=== PATIENT | female | born 1960 | race Caucasian/White ===

== ENCOUNTER 2018-06-12 12:14 | Inpatient (IN) | payer OTHER ==
[2018-06-12 09:30] VITALS: BMI 25.7
[2018-06-12] MEDS ORDERED: MIDAZOLAM HCL 2 MG/2 ML SINGLE DOSE VIAL ONE (15:48)
[2018-06-12] MEDS ORDERED: fentaNYL CITRATE 250 MCG/5 ML VIAL ONE (15:48)
[2018-06-12] MEDS ORDERED: PROPOFOL 20 ML ONE (15:48)
[2018-06-12] MEDS ORDERED: HYDROmorphone HCl 2 MG/ML VIAL ONE (15:48)
[2018-06-12] MEDS ORDERED: ROCURONIUM BROMIDE 50 MG/5 ML VIAL ONE ×2 (15:48)
[2018-06-12] MEDS ORDERED: SUCCINYLCHOLINE CHLORIDE 200 MG/10 ML VIAL ONE (15:49)
[2018-06-12] MEDS ORDERED: ceFAZolin SODIUM 1 GM VIAL ONE (15:53)
[2018-06-12] MEDS ORDERED: SODIUM CHLORIDE 0.9% P/F 10 ML VIAL IJ ONE (15:53)
[2018-06-12] MEDS ORDERED: ceFAZolin SODIUM 1 GM VIAL IVPB ONE (16:10)
[2018-06-12] MEDS ORDERED: NEOSTIGMINE METHYLSULFATE 0.5 MG/ML - 10 ML MDV ONE (17:44)
[2018-06-12] MEDS ORDERED: METOCLOPRAMIDE HCL INJECTION 10 MG/2 ML VIAL IVPUSH PRN (18:50)
[2018-06-12] MEDS ORDERED: morphine CARPU-JECT 2 MG/1 ML DISP.SYRIN IVPUSH PRN (18:50)
[2018-06-12] MEDS ORDERED: diphenhydrAMINE HCL 25 MG CAPSULE (FP) PO PRN (18:50)
[2018-06-12] MEDS ORDERED: PROCHLORPERAZINE INJECTION 10 MG/2 ML VIAL IVPB PRN (18:50)
[2018-06-12] MEDS ORDERED: ONDANSETRON 4 MG/2 ML VIAL IVPB PRN (18:50)
[2018-06-12] MEDS ORDERED: ZOLPIDEM TARTRATE 5 MG TABLET PO PRN (18:52)
[2018-06-12] MEDS ORDERED: oxyCODONE HCL 5 MG TABLET PO PRN (18:56)
[2018-06-12] MEDS ORDERED: PATIENT'S OWN MEDICATION (NON-FORMULARY) (Sitagliptin Phos/Metformin Hcl [Janumet 50-1,000 PO SCH (19:00)
[2018-06-12] MEDS ORDERED: KETOROLAC TROMETHAMINE 15 MG/ML VIAL IVPUSH SCH (19:00)
--- NOTE | 2018-06-12 19:02 | OP ---
Operative Note - Note: Operative Date: 06/12/18 Pre-Operative Diagnosis: Ovarian cyst, Uterine mass Operation: Total abdominal hysterectomy and omentectomy Post-Operative Diagnosis: Same as Pre-op Surgeon: Yina Casillas [employer] Specialist: Toi Gallegos Anesthesia: General Estimated Blood Loss (mls): 300 Fluid Volume Replaced (mls): 2,000 Operative Report Dictated: Yes
[2018-06-12] MEDS ORDERED: HYDROmorphone *PCA* 10MG/50ML DISP.SYRIN PCA ONE ×2 (19:04→19:15)
--- NOTE | 2018-06-12 19:04 | SURG ---
Surgery Scene Painter Note Scene Painter: Toi Gallegos PA-C Date of Service: 06/12/18 Diagnosis: Ovarian cyst and Uterine mass Procedure: Total abdominal hysterectomy and omentectomy I was present for the entirety of the operative procedure. For further detail, please refer to operative report. Visit type - Case Type Case Type: Scheduled - Emergency Emergency Visit: No - New patient This patient is new to me today: Yes Date on this admission: 06/12/18
[2018-06-12] MEDS ORDERED: ONDANSETRON 4 MG/2 ML VIAL IVPUSH PRN (19:06)
[2018-06-12] MEDS ORDERED: DEXAMETHASONE SOD PHOSPHATE 4 MG/1 ML VIAL IVPUSH ONE (19:06)
[2018-06-12] MEDS ORDERED: LACTATED RINGERS SOLUTION 1,000 ML IV SCH (19:15)
[2018-06-12] MEDS ORDERED: HYDROmorphone *PCA* 10MG/50ML DISP.SYRIN PCA SCH (19:15)
--- NOTE | 2018-06-12 20:47 | OP ---
DATE OF OPERATION: 06/12/2018 PREOPERATIVE DIAGNOSIS: Abdominopelvic mass. POSTOPERATIVE DIAGNOSIS: Left ovarian mucinous tumor. SURGEON: Yina Casillas MD ROVING WEIGHT GAUGER: PEDRO PABLO Acosta ANESTHESIA: General endotracheal. ESTIMATED BLOOD LOSS: 150 mL. COMPLICATIONS: None. INDICATIONS: This is a 57-year-old who reports increased abdominal girth and lower abdominal pain and bloating for approximately 1 month. She had a CT scan that showed a large septated abdominopelvic mass. CA-125 was normal. The patient was counseled regarding surgical management. Risks, benefits, indications and alternatives were discussed with the patient. All questions were answered. Informed consent was signed. FINDINGS: Large, smooth-walled, multiloculated, approximately 35-cm mass arising from the left ovary. Left tube appeared abnormal as it was stretched across the mass. Right tube and ovary appeared normal. Uterus approximately 6-8 weeks' size. The appendix was completely normal appearing. Omentum appeared normal. There was no intraabdominal evidence of disease. There was no ascites. There were some attachments to the small bowel which were filmy, pink, almost steven-like attachments on the small bowel. The diaphragm was smooth and liver edge was smooth. PROCEDURE: The patient was taken to the operating room, placed in the dorsal supine position. General endotracheal anesthesia was obtained without difficulty. She was prepped and draped in normal sterile fashion. Lopez catheter was placed in the bladder. A vertical midline skin incision was made inferior to the umbilicus and carried down to the underlying fascia. The fascia was opened in the midline. Peritoneum was identified and entered sharply with Metzenbaum scissors. This incision was extended inferiorly and superiorly. It was evident that it was not able to be removed without making a much large incision. This incision was carried superior to the umbilicus and we palpated all around the mass. There were no adhesions posteriorly and a 2-0 silk stitch was placed in a pursestring fashion and using the suction the mass was decompressed, while controlling the drainage. It was able to be decompressed and exteriorized. The left retroperitoneum appeared to contain a thick mucoid material. The left retroperitoneum was opened. The left ureter was identified and dissected away from the infundibulopelvic ligament. The infundibulopelvic ligament was doubly clamped, transected and ligated with a free tie of 0-Vicryl and suture ligated with 0-Vicryl. The round ligament was suture ligated and divided. The right retroperitoneum was opened. The right ureter was dissected away from the infundibulopelvic ligament. The infundibulopelvic ligament was doubly clamped, transected and ligated with 3 ties of 0-Vicryl, suture ligated with 0-Vicryl. The round ligament was suture ligated and divided. The bladder flap was opened and the bladder was dissected off the anterior cervix and upper vagina. The uterine arteries were skeletonized. They were clamped, cauterized and transected using the LigaSure device. The cardinal ligaments were serially clamped, cauterized and transected using the LigaSure device. The uterosacral ligaments were clamped, cauterized and transected. Again bladder was dissected off the anterior cervix and upper vagina. Two Zeppelin clamps were placed distal to the cervix and the cervix was amputated from the vagina. Uterus, cervix, ovaries and tubes were handed off the field for frozen section. They returned mucinous tumor with no evidence of invasion visualized. They deferred to permanent. The vaginal cuff was closed in Jordyn stitch using 0-Vicryl. The remainder of the vaginal cuff was closed in a running locked fashion using 0-Vicryl. The pelvis was irrigated thoroughly with sterile water and noted to be hemostatic. As we had been waiting for the frozen section, an omentectomy was performed using the LigaSure device inferior to the transverse colon. Excellent hemostasis was seen. The pelvis was thoroughly irrigated with sterile water again and noted to be hemostatic. Surgicel was placed on the vaginal cuff for added assurance. Please note that there were extensive omental adhesions to the anterior abdominal wall from prior section. These omental adhesions had been freed with the LigaSure. All instruments were removed from the patient's abdomen. The fascia was closed in a running locked fashion using 0-PDS. Subcutaneous fat was irrigated with saline. The skin was closed with carlos. The patient was extubated and transferred in stable condition to the PACU. Sponge, needle and instrument counts were correct x2. Edwige [id number]
[2018-06-12] MEDS: ACETAMINOPHEN 325 MG TABLET (FP) PO SCH (23:30)
[2018-06-12] MEDS: ATORVASTATIN CA 40 MG TABLET (FP) PO SCH (23:31)
[2018-06-12] MEDS: GABAPENTIN 300 MG CAPSULE (FP) PO SCH (23:32)
[2018-06-12] MEDS: KETOROLAC TROMETHAMINE 30 MG/1 ML VIAL IVPUSH SCH (23:34)
[2018-06-13] MEDS: ACETAMINOPHEN 325 MG TABLET (FP) PO SCH ×3 (03:45→21:10)
[2018-06-13] MEDS: KETOROLAC TROMETHAMINE 30 MG/1 ML VIAL IVPUSH SCH ×3 (04:00→19:42)
[2018-06-13] MEDS: GABAPENTIN 300 MG CAPSULE (FP) PO SCH ×2 (06:39→21:10)
[2018-06-13] MEDS ORDERED: INSULIN (LEVEMIR) 100 UNITS/ML UNITS SQ SCH (07:00)
[2018-06-13 07:37] LABS: HEMATOCRIT 31.6 % (32.4-45.2); HEMOGLOBIN 10.8 GM/dL (10.7-15.3); MCH 28.3 pg (25.7-33.7); MCHC 34.1 g/dl (32.0-36.0); MEAN CELL VOLUME 82.9 fl (80-96); MEAN PLT VOLUME 7.8 fl (7.5-11.1); PLATELET COUNT 331 K/MM3 (134-434); RBC 3.81 M/mm3 (3.60-5.2); RDW 15.3 % (11.6-15.6); WHITE BLOOD COUNT 8.2 K/mm3 (4.0-10.0)
[2018-06-13 07:56] LABS: ANION GAP 6 MMOL/L (8-16); BLOOD UREA NITROGEN 25 mg/dL (7-18); CALCIUM 7.6 mg/dL (8.5-10.1); CHLORIDE 105 mmol/L (98-107); CO2 26 mmol/L (21-32); CREATININE 0.9 mg/dL (0.55-1.3); GLUCOSE,RANDOM 124 mg/dL (74-106); POTASSIUM 4.9 mmol/L (3.5-5.1); SODIUM 137 mmol/L (136-145)
[2018-06-13] MEDS: INSULIN SLIDING SCALE (NOVOLOG) 1 VIAL SQ SCH ×2 (07:56→18:00)
--- NOTE | 2018-06-13 07:57 | PN ---
Progress Note (short form) - Note Progress Note: POD #1 s/p Open ROSANGELA/BSO w/ Omentectomy Alert. Supine in bed. Hasn't been OOB yet. C/o incisional tenderness. Adequate pain control w/ meds ordered. Gentile in place. Denies n/v/f/c, CP, palpitations, SOB or FIGUEROA. Last Vital Signs Temp Pulse Resp BP Pulse Ox 98.4 F 106 H 20 105/53 L 99 06/13/18 06:21 06/13/18 06:21 06/13/18 06:21 06/13/18 06:21 06/13/18 06:21 CBC, BMP 06/13/18 06:35 06/13/18 06:35 PE Gen: alert. NAD. ABD: dressing c/d/i. : gentile to gravity (clear) LE: SCDs bilat. Soft. NT. Problem List - Problems (1) Ovarian cystic mass Assessment/Plan: POD #1 s/p Open ROSANGELA/BSO w/ Omentectomy Gentile dc'd and begin trial of void OOB and ambulate Incentive Spirometer Pain management Finger Sticks ACHS Tight Glycemic Control Sliding Scale DC planning 06/14 Above plan discussed with Dr. Casillas and agrees. Code(s): N83.209 - UNSPECIFIED OVARIAN CYST, UNSPECIFIED SIDE
[2018-06-13] MEDS: sitaGLIPtin PHOSPHATE 50 MG TABLET PO SCH (08:01)
[2018-06-13] MEDS: metFORMIN HCL 500 MG TABLET (FP) PO SCH (08:01)
[2018-06-13] MEDS: LISINOPRIL 5 MG TABLET (FP) PO SCH (09:27)
[2018-06-13] MEDS: ASPIRIN COATED 81 MG TABLET.EC PO SCH (09:28)
[2018-06-13] MEDS: ESCITALOPRAM OXALATE 20 MG TABLET (FP) PO SCH (09:28)
--- NOTE | 2018-06-13 09:33 | PN ---
Progress Note (short form) - Note Progress Note: POD #1 - s/p ROSANGELA-BSO under GA with dilaudid SYSTEM CONSULTANT for postop pain control. VSS. Pt. doing well, resting comfortably in bed. No complaints. Good pain control. No apparent anesthetic complications noted. Discharge planned for tomorrow. Will discontinue SYSTEM CONSULTANT and order po meds in anticipation of discharge.
[2018-06-13] MEDS ORDERED: oxyCODONE HCL 5 MG TABLET PO PRN ×2 (09:34→09:35)
[2018-06-13] MEDS: ENOXAPARIN NA (PORCINE) 40 MG/0.4 ML DISP.SYRIN SQ SCH (09:44)
[2018-06-13] MEDS: PANTOPRAZOLE 40 MG TABLET (FP) PO SCH (11:03)
[2018-06-13] MEDS ORDERED: PCA PUMP KEY 1 EACH EACH ONE (11:09)
--- NOTE | 2018-06-13 12:58 | RAPID ---
Physical Examination Vital Signs: Vital Signs Temperature 98 F 06/13/18 10:00 Pulse Rate 98 H 06/13/18 10:00 Respiratory Rate 20 06/13/18 10:00 Blood Pressure 105/51 L 06/13/18 10:00 O2 Sat by Pulse Oximetry (%) 99 06/13/18 06:21 Labs: CBC, BMP 06/13/18 06:35 06/13/18 06:35 Rapid Response - Rapid Response Assessment: rapid response called patient POD 1 from [facility] had right facial droop, slurred speech numbness of right side of face NIH scale: facial palsy +2, sensation +1, dysrthria +1, other +0= NIH 4 ( [facility] template not available) -vitals: BP 121/65 HR 101 sp02 100 percent RA gen: acute distress right sided facial droop CV: RRR Neuro: CN 2-12 intact 5/5 strenght BL UE LE Code gao called overhead STAT CBC CMP BGM HEAD CT iCU Neuro conuslt called BRAIN MRI carotid doppler speech/swallow eval
[2018-06-13] MEDS ORDERED: ASPIRIN 300 MG SUPP.RECT PR ONE (13:37)
[2018-06-13] MEDS ORDERED: ASPIRIN 81 MG CHEWABLE TABLETS PO ONE (13:48)
--- NOTE | 2018-06-13 14:01 | CONSULT ---
Admitting History and Physical - Admission History of Present Illness: 57 yo s/p Open ROSANGELA/BSO w/ Omentectomy Rapid response called with onset of right facial droop slurred speech numbness of right side of face Asked to evaluate pt in ICU. CT head (-). MRI pending. History Source: Patient, Family Member, Medical Record Limitations to Obtaining History: No Limitations - Past Medical History ...LMP Comment: 2016 - Smoking History Smoking history: Current some day smoker Have you smoked in the past 12 months: Yes Aproximately how many cigarettes per day: 3 - Alcohol/Substance Use Hx Alcohol Use: No History - Admission Reason For Visit: CYST OF OVARY - Diagnostics CT Scan: Report Reviewed MRI: Pending - General Mental Status: Alert and Oriented, Awake and Alert, Able to Follow Commands Attention: Intact Ability to Follow Directions: Excellent Head/Neck Control: WFL - Hearing Hearing: Normal Speech Evaluation - Communication Primary Language: TANZANIAN Secondary Language: CROATIAN (fluent, functional) Communication: Yes: Dysarthria Oral Expression Ability: Yes: Mild Impairment - Speech Production Able to Make Needs Known: Yes: WNL Intelligibility: Yes: Mildly Impaired - Speech Characteristics Voice Loudness: Normal Voice Pitch: Yes: Normal Voice Phonatory-based Quality: Yes: Normal Speech Clarity: < 100% Nasal Resonance: Normal Articulation: Yes: Imprecise Rate of Speech: Intact - Language/Auditory Comprehension Follows: Yes: 2 Stage Simple Commands - Language/Verbal Expression Able to Respond to Simple Queries: Yes: WNL Able to Communicate Wants and Needs: Yes: WNL Functional Communication Status: Yes: WNL - Memory/Perception MCC Memory: Yes: WNL Short Term Memory: Yes: WNL - Swallow Evaluation/Bedside Assessment Current Nutritional Intake: NPO Oral Secretions: Yes: WFL Dentition: Yes: Adequate Facial Symmetry on Retraction: Facial Droop Right Pucker Lips: Droops Right Smile: Droops Right Lingual Movement: Symmetric Lingual Movement Characteristics: Normal Laryngeal Movement: Able to Palpate Rate of Intake: WFL Oral Prep Time: WFL A-P Transit: WFL Pocketing: None Timing of Swallow: Delayed Coughing/Throat Clear: Yes (thin water, puree) Recommendations - Speech Evaluation, Impression/Plan Impression: Pt presents with right facial, able to elevate RUE with weak grasp. Cognitively intact.Language intact with unimpaired conversation, naming, repetition. Good historian.No clear field cut or neglect. Mild Dysarthria with mild articulatory imprecision and good vocal quality.Good(-) intelligibility. . Overtly able to swallow saliva, with no drooling, vocal wetness or coughing on saliva demonstrated.Cough response on thin water and applesauce which followed.Pt c/o phlegm in her chest. Respiration unlabored. - Dysphagia Impressions/Plan Swallowing Skills: Impaired Dysphagia Impressions: Mild Impairment, Ongoing Evaluation, Suspect Aspiration *Silent aspiration: cannot be R/O at bedside Recommendations: Other (To reassess. Acute onset stroke-evolving? HO elevated. Provide Yankower for self suction, if neccessary. Mouth care.) - Recommendations Diet Consistency: NPO, Other (NPO including medication) Liquids: NPO
--- NOTE | 2018-06-13 14:10 | CONSULT ---
Consultation: REQUESTING PROVIDER: CONSULT REQUEST: We have been asked to medically evaluate this patient for ICU monitoring following Saad Hines. HISTORY OF PRESENT ILLNESS: 57 yo female with PMH HTN, HLD, IDDM, POD 1 total abdominal hysterectomy and BSO. Surgical procedure uncomplicated. As per nursing staff, gentile was removed this morning, pt has not yet urinated. As she was about to ambulate for the first time since the operation yesterday she noted right facial weakness and numbness and asked the nurse what was wrong with her face. Rapid response was called followed shortly by saad hines. CT done and negative for signs of acute ischemia. Saad hines team discussed case with neurology who recommended additional asa 81 mg (pt received home dose 81 mg this AM) and MRI and will evaluate the patient. REVIEW OF SYSTEMS: CONSTITUTIONAL: difficulty swallowing Absent: fever, chills, diaphoresis, generalized weakness, malaise, loss of appetite, weight change HEENT: Absent: rhinorrhea, nasal congestion, throat pain, throat swelling, , mouth swelling, ear pain, eye pain, visual changes CARDIOVASCULAR: Absent: chest pain, syncope, palpitations, irregular heart rate, lightheadedness , peripheral edema RESPIRATORY: Absent: cough, shortness of breath, dyspnea with exertion, orthopnea, wheezing, stridor, hemoptysis GASTROINTESTINAL: Absent: abdominal pain, abdominal distension, nausea, vomiting, diarrhea, constipation, melena, hematochezia GENITOURINARY: Absent: dysuria, frequency, urgency, hesitancy, hematuria, flank pain, genital pain MUSCULOSKELETAL: Absent: myalgia, arthralgia, joint swelling, back pain, neck pain SKIN: Absent: rash, itching, pallor HEMATOLOGIC/IMMUNOLOGIC: Absent: easy bleeding, easy bruising, lymphadenopathy, frequent infections ENDOCRINE: Absent: unexplained weight gain, unexplained weight loss, heat intolerance, cold intolerance NEUROLOGIC: headache, focal weakness or paresthesias Absent: , dizziness, unsteady gait, seizure, mental status changes, bladder or bowel incontinence PSYCHIATRIC: Absent: anxiety, depression, suicidal or homicidal ideation, hallucinations. PHYSICAL EXAMINATION Vital Signs - 24 hr 06/12/18 06/12/18 06/12/18 18:54 19:10 19:15 Temperature 98.1 F Pulse Rate 92 H 100 H 90 Respiratory 16 16 16 Rate Blood Pressure 121/50 L 133/66 134/64 O2 Sat by Pulse 95 97 Oximetry (%) 06/12/18 06/12/18 06/12/18 19:25 19:40 19:55 Temperature Pulse Rate 90 104 H 100 H Respiratory 16 16 16 Rate Blood Pressure 134/64 127/60 133/60 O2 Sat by Pulse 97 97 95 Oximetry (%) 06/12/18 06/12/18 06/12/18 20:00 20:10 20:15 Temperature 98.2 F Pulse Rate 114 H 100 H 114 H Respiratory 20 16 20 Rate Blood Pressure 119/57 L 125/64 119/57 L O2 Sat by Pulse 97 96 Oximetry (%) 06/12/18 06/12/18 06/12/18 20:25 20:40 21:00 Temperature 98.5 F 98.2 F Pulse Rate 104 H 100 H 114 H Respiratory 16 16 20 Rate Blood Pressure 124/74 125/73 119/57 L O2 Sat by Pulse 96 97 Oximetry (%) 06/13/18 06/13/18 06/13/18 01:29 01:30 06:21 Temperature 98.2 F 98.4 F Pulse Rate 102 H 106 H Respiratory 20 20 Rate Blood Pressure 126/52 L 105/53 L O2 Sat by Pulse 97 99 Oximetry (%) 06/13/18 10:00 Temperature 98 F Pulse Rate 98 H Respiratory 20 Rate Blood Pressure 105/51 L O2 Sat by Pulse Oximetry (%) GEN: A&O, no acute distress HEENT: dry mucus membranes NECK: supple HEART: RRR, no murmurs noted LUNGS: CTA b/l ABDOMEN: Soft, nontender, vertical surgical incision site clean and dry without erythema, 26 surgical carlos noted EXTREMITIES: 2+ pulses, no calf tenderness or edema NEURO: right facial droop, decreased sensation in V1 distribution, and in right distal extremity. 4/5 strength RUE, 5/5 everywhere else Laboratory Results - last 24 hr 06/12/18 06/13/18 06/13/18 19:00 06:35 06:35 WBC 8.2 RBC 3.81 Hgb 10.8 Hct 31.6 L MCV 82.9 MCH 28.3 MCHC 34.1 RDW 15.3 Plt Count 331 MPV 7.8 Sodium 137 Potassium 4.9 Chloride 105 Carbon Dioxide 26 Anion Gap 6 L BUN 25 H Creatinine 0.9 Creat Clearance w eGFR > 60 POC Glucometer 98 Random Glucose 124 H Calcium 7.6 L 06/13/18 06/13/18 06/13/18 07:48 11:38 12:54 WBC RBC Hgb Hct MCV MCH MCHC RDW Plt Count MPV Sodium Potassium Chloride Carbon Dioxide Anion Gap BUN Creatinine Creat Clearance w eGFR POC Glucometer 132 145 107 Random Glucose Calcium 06/13/18 13:41 WBC RBC Hgb Hct MCV MCH MCHC RDW Plt Count MPV Sodium Potassium Chloride Carbon Dioxide Anion Gap BUN Creatinine Creat Clearance w eGFR POC Glucometer 104 Random Glucose Calcium Active Medications Generic Name Dose Route Start Last Admin Trade Name Freq PRN Reason Stop Dose Admin Acetaminophen 650 mg 06/12/18 19:00 06/13/18 09:42 Tylenol - PO 650 mg Q6H LEENA Administration Aspirin 81 mg 06/13/18 10:00 06/13/18 09:28 Ecotrin - PO 81 mg DAILY LEENA Administration Aspirin 81 mg 06/13/18 13:48 Asa - PO 06/13/18 13:49 ONCE ONE Atorvastatin Calcium 40 mg 06/12/18 22:00 06/12/18 23:31 Lipitor - PO Not Given HS LEENA Diphenhydramine HCl 25 mg 06/12/18 18:50 06/12/18 20:23 Benadryl Injection - IVPB 25 mg Q6H PRN Administration FOR ITCHING Diphenhydramine HCl 25 mg 06/12/18 18:50 Benadryl - PO Q6H PRN FOR ITCHING Enoxaparin Sodium 40 mg 06/13/18 10:00 06/13/18 09:44 Lovenox - SQ 40 mg DAILY LEENA Administration Escitalopram Oxalate 20 mg 06/13/18 10:00 06/13/18 09:28 Lexapro - PO 20 mg DAILY [facility] Administration Fentanyl 25 mcg 06/12/18 19:06 Sublimaze Injection - IVPUSH [id number] PRN PAIN-PACU ORDER X 4 DOSES ONLY Gabapentin 300 mg 06/12/18 22:00 06/13/18 06:39 Neurontin - PO Not Given TID LEENA Lactated Ringer's 1,000 mls @ 125 mls/hr 06/12/18 19:15 06/12/18 19:15 Lactated Ringers Solution IV 125 mls/hr ASDIR LEENA Administration Insulin Aspart 1 vial 06/13/18 07:00 06/13/18 07:56 Novolog Vial Sliding Scale - SQ Not Given TIDAC [facility] Protocol Insulin Detemir 75 units 06/13/18 07:00 06/13/18 07:59 Levemir Vial SQ 75 unit DAILY@0700 LEENA Administration Ketorolac Tromethamine 15 mg 06/12/18 21:45 06/13/18 09:39 Toradol Injection - IVPUSH 06/17/18 21:44 15 mg Q6H LEENA Administration Lisinopril 5 mg 06/13/18 10:00 06/13/18 09:27 Prinivil PO 5 mg DAILY LEENA Administration Metformin HCl 1,000 mg 06/13/18 07:00 06/13/18 08:01 Glucophage - PO 1,000 mg DAILY@0700 LEENA Administration Metoclopramide HCl 10 mg 06/12/18 18:50 Reglan Injection - IVPUSH Q6H PRN NAUSEA AND/OR VOMITING Ondansetron HCl 8 mg 06/12/18 18:50 Zofran Injection IVPB Q8H PRN NAUSEA Ondansetron HCl 4 mg 06/12/18 19:06 Zofran Injection IVPUSH Q6H PRN NAUSEA AND/OR VOMITING Oxycodone HCl 5 mg 06/13/18 09:34 Roxicodone - PO Q4H PRN PAIN LEVEL 1-5 Oxycodone HCl 10 mg 06/13/18 09:35 Roxicodone - PO Q4H PRN PAIN LEVEL 6-10 Pantoprazole Sodium 40 mg 06/13/18 10:00 06/13/18 11:03 Protonix - PO 40 mg DAILY LEENA Administration Prochlorperazine Edisylate 25 mg 06/12/18 18:50 Compazine Injection - IVPB Q6H PRN NAUSEA AND/OR VOMITING Sitagliptin Phosphate 50 mg 06/13/18 07:00 06/13/18 08:01 Januvia - PO 50 mg DAILY@0700 [facility] Administration Zolpidem Tartrate 5 mg 06/12/18 18:52 Ambien - PO HS PRN INSOMNIA ASSESSMENT/PLAN: 57 yo female with PMH HTN, HLD, IDDM, POD 1 total abdominal hysterectomy and BSO. NEURO -CVA/TIA neurology consulted and will evaluate pt ASA 81 mg additional from home dose already given this AM After extensive discussion with surgeon, radiology, and literature review, determined that surgical carlos likely safe, however with theoretical risk will CTA brain to assess for possible embolectomy Not a tpa candidate as she is post op day 1 Continue Lipitor 40 mg once cleared for PO swallow eval failed at this time, speech and swallow recommends NPO for now including meds Carotid US pending CARDIO -HTN - Lisinopril 5 mg PO Daily once tolerating PO -HLD - Lipitor as above PULMONARY -no acute pulmonary pathology at this time GI -Monitor for signs of ileus ENDOCRINE -IDDM Continue metformin, januvia, Levemir 75 units AM, ISS ACHS for further glycemic control PROPHYLAXIS -continue Lovenox 40 mg SQ Daily -no GI prophylaxis indicated FEN -LR @ 125 cc/hr -monitor and replete -NPO for now including meds DISPO Monitor in ICU for now Dispo: We will continue to follow the patient. Thank you for this consultative opportunity. Visit type - Emergency Visit Emergency Visit: Yes ED Registration Date: 06/12/18 Care time: The patient presented to the Emergency Department on the above date and was hospitalized for further evaluation of their emergent condition. - New Patient This patient is new to me today: Yes Date on this admission: 06/13/18 - Critical Care Critical Care patient: Yes Total Critical Care Time (in minutes): 60 Critical Care Statement: The care of this patient involved high complexity decision making to prevent further life threatening deterioration of the patient 's condition and/or to evaluate & treat vital organ system(s) failure or risk of failure.
--- NOTE | 2018-06-13 14:42 | PDOC ---
NIH Stroke Scale - Last Known Well Date/Time & Onset Date Last Known Well: 06/13/18 Time Last Known Well: 12:00 - Initial Evaluation Level of consciousness: Alert Ask patient the month and their age: Answers both correctly Ask patient to open & close eyes; make fist and let go: Obeys both correctly Best gaze (horizontal eye movement): Normal Visual field testing: No visual field loss Facial paresis (Show teeth/raise eyebrows/close eyes tight): Partial paralysis ( total or near paralysis of lower face) Motor Function: Left Arm: Normal Motor Function: Right Arm: Normal (extends arm 90 (or 45) degrees for 10 seconds without drift Motor Function: Left Leg: Normal (extends leg 30 degrees for 5 seconds without drift) Motor Function: Right Leg: Normal (extends leg 30 degrees for 5 seconds without drift) Limb Ataxia: No ataxia Sensory(Use pinprick test arms,legs,trunk,face/side to side): Mild to moderate decrease in sensation Best language (Describe picture, name items, read sentences): No Aphasia Dysarthria (read several words): Mild to moderate slurring of words Extinction and Inattention: No abnormality - Total Score NIH Stroke Scale Score: 4
[2018-06-13] MEDS ORDERED: ACETAMINOPHEN 1000 MG/100 ML VIAL (NON FORMULARY) IVPB ONE (15:07)
[2018-06-13 15:28] LABS: HEMATOCRIT 32.1 % (32.4-45.2); MCH 28.5 pg (25.7-33.7); MCHC 34.3 g/dl (32.0-36.0); MEAN CELL VOLUME 83.3 fl (80-96); PLATELET COUNT 331 K/MM3 (134-434); RBC 3.85 M/mm3 (3.60-5.2); RDW 15.9 % (11.6-15.6); WHITE BLOOD COUNT 7.6 K/mm3 (4.0-10.0)
[2018-06-13 15:46] LABS: ALBUMIN 2.4 g/dl (3.4-5.0); ALK PHOS 92 U/L (45-117); ANION GAP 4 MMOL/L (8-16); BILIRUBIN,TOTAL 0.3 mg/dL (0.2-1); BLOOD UREA NITROGEN 26 mg/dL (7-18); CALCIUM 7.6 mg/dL (8.5-10.1); CHLORIDE 103 mmol/L (98-107); CO2 28 mmol/L (21-32); CREATININE 0.8 mg/dL (0.55-1.3); GLUCOSE,RANDOM 99 mg/dL (74-106); MAGNESIUM 1.6 mg/dL (1.8-2.4); PHOSPHOROUS 3.3 mg/dL (2.5-4.9); POTASSIUM 4.5 mmol/L (3.5-5.1); SGOT/AST 41 U/L (15-37); SGPT/ALT 20 U/L (13-61); SODIUM 136 mmol/L (136-145); TOT PROT 5.5 g/dl (6.4-8.2)
[2018-06-13] MEDS: DEXTROSE 5%-LACTATED RINGERS 1,000 ML IV SCH (18:02)
[2018-06-13] MEDS ORDERED: SODIUM CHLORIDE NASAL SPRAY 44 ML BOTTLE NS PRN (20:29)
--- NOTE | 2018-06-13 20:41 | CON.NEURO ---
Consult - Past Medical History ...LMP Comment: 2016 - Alcohol/Substance Use Hx Alcohol Use: No - Smoking History Smoking history: Current some day smoker Have you smoked in the past 12 months: Yes Aproximately how many cigarettes per day: 3 Home Medications - Allergies Allergies/Adverse Reactions: Allergies Allergy/AdvReac Type Severity Reaction Status Date / Time No Known Allergies Allergy Verified 06/12/18 09:23 - Home Medications Home Medications: Ambulatory Orders Atorvastatin Ca [Lipitor] 40 mg PO HS 09/06/14 Lisinopril [Prinivil -] 5 mg PO DAILY 09/06/14 Aspirin [Ecotrin] 81 mg PO DAILY 01/22/15 Escitalopram Oxalate [Lexapro -] 20 mg PO ASDIR 01/22/15 Gabapentin [Neurontin] 300 mg PO TID #30 capsule 01/22/15 Pantoprazole Sodium [Protonix] 40 mg PO ASDIR 01/22/15 Sitagliptin Phos/Metformin HCl [Janumet 50-1,000 mg Tablet] 1 tab PO ASDIR 01/22 Insulin Degludec [Tresiba Flextouch U-100] 75 unit SQ DAILY 06/12/18 Insulin Sliding Scale [Novolog Vial Sliding Scale -] 0 units SQ AC PRN 06/12/18 Zolpidem Tartrate [Ambien] 5 mg PO PRN PRN 06/12/18 Tramadol HCl 50 mg PO Q6H PRN #30 tablet MDD 4 06/13/18 Physical Exam-Neuro Vital Signs: Vital Signs Temperature 98.6 F 06/13/18 18:00 Pulse Rate 94 H 06/13/18 18:00 Respiratory Rate 15 06/13/18 18:00 Blood Pressure 102/54 L 06/13/18 18:00 O2 Sat by Pulse Oximetry (%) 100 06/13/18 13:40 Labs: CBC, BMP 06/13/18 15:00 06/13/18 15:00 Assessment/Plan cc Transient right sided weakness and face weakness HPI 57 year old female history of HTN,HLD,IDDM. Patient came with total hysterectomy on june 12 and on june 13. She has sudden onset right face droopiness and arm weakness. she is on aspirin and statin at home and aspirin was stopped due to surgery. I spent 35 minute doing critical care. PMH as above Medication aspirin on hold and lipitor 40 mg once a day SH,ROS,FH reviewed in chart PHYSICAL EXAMINATION Alert oriented x speech is normal eomi pupils reactive, no face asymmetry motor 5/5 all ext sensation is normal gait and coordination is normal ct head and cta of brain is normal carotid ultrasound is normal Assessment : 57 year old female history of DM,HTN,HLD, came for abdominal hysterectomy and had tia on post op day one. Plan: increase lipitor 80 mg once a day she can be started on plavix, when antiplatelet can br resumed work up has been negative diagnosis and prognosis was discussed with patient and family Thanking you so much Henrique Block MD
[2018-06-13] MEDS: ATORVASTATIN CA 40 MG TABLET (FP) PO SCH (21:10)
[2018-06-14] MEDS: ACETAMINOPHEN 325 MG TABLET (FP) PO SCH ×5 (01:55→22:10)
[2018-06-14] MEDS ORDERED: ACETAMINOPHEN 1000 MG/100 ML VIAL (NON FORMULARY) IVPB ONE (02:01)
[2018-06-14] MEDS: DEXTROSE 5%-LACTATED RINGERS 1,000 ML IV SCH ×3 (03:16→18:00)
[2018-06-14] MEDS: GABAPENTIN 300 MG CAPSULE (FP) PO SCH ×3 (05:53→22:10)
[2018-06-14] MEDS: sitaGLIPtin PHOSPHATE 50 MG TABLET PO SCH (06:10)
[2018-06-14] MEDS: metFORMIN HCL 500 MG TABLET (FP) PO SCH (06:10)
[2018-06-14] MEDS: INSULIN SLIDING SCALE (NOVOLOG) 1 VIAL SQ SCH ×3 (06:16→16:40)
[2018-06-14] MEDS ORDERED: INSULIN (LEVEMIR) 100 UNITS/ML UNITS SQ SCH (07:00)
--- NOTE | 2018-06-14 08:51 | PN ---
Physical Exam: SUBJECTIVE: Patient seen and examined this AM. She states that her weakness and numbness has resolved and that she is feeling much better, however she is still having significant surgical site pain and is requesting medications. Discussed with patient the caution of her low respiratory rate with further narcotic use but that she could have the ordered oxycodone if she is due. OBJECTIVE: Vital Signs Period Temp Pulse Resp BP Sys/Dozier Pulse Ox Last 24 Hr 98 F-99.1 F 76-100 9-20 89-148/45-66 100-100 GEN: A&O, no acute distress HEENT: moist mucus membranes NECK: supple HEART: RRR, no murmurs noted LUNGS: CTA b/l ABDOMEN: Soft, nontender, vertical surgical incision site clean and dry without erythema, 26 surgical carlos noted EXTREMITIES: 2+ pulses, no calf tenderness or edema NEURO: right facial droop greatly improved. 5/5 strength throughout Laboratory Results - last 24 hr 06/13/18 06/13/18 06/13/18 11:38 12:54 13:41 WBC RBC Hgb Hct MCV MCH MCHC RDW Plt Count MPV Sodium Potassium Chloride Carbon Dioxide Anion Gap BUN Creatinine Creat Clearance w eGFR POC Glucometer 145 107 104 Random Glucose Calcium Phosphorus Magnesium Total Bilirubin AST ALT Alkaline Phosphatase Total Protein Albumin 06/13/18 06/13/18 06/13/18 15:00 15:00 17:41 WBC 7.6 RBC 3.85 Hgb 11.0 Hct 32.1 L MCV 83.3 MCH 28.5 MCHC 34.3 RDW 15.9 H Plt Count 331 MPV 8.0 Sodium 136 Potassium 4.5 Chloride 103 Carbon Dioxide 28 Anion Gap 4 L BUN 26 H Creatinine 0.8 Creat Clearance w eGFR > 60 POC Glucometer 78 Random Glucose 99 Calcium 7.6 L Phosphorus 3.3 Magnesium 1.6 L Total Bilirubin 0.3 AST 41 H ALT 20 Alkaline Phosphatase 92 Total Protein 5.5 L Albumin 2.4 L 06/14/18 06:08 WBC RBC Hgb Hct MCV MCH MCHC RDW Plt Count MPV Sodium Potassium Chloride Carbon Dioxide Anion Gap BUN Creatinine Creat Clearance w eGFR POC Glucometer 168 Random Glucose Calcium Phosphorus Magnesium Total Bilirubin AST ALT Alkaline Phosphatase Total Protein Albumin Active Medications Generic Name Dose Route Start Last Admin Trade Name Freq PRN Reason Stop Dose Admin Acetaminophen 650 mg 06/12/18 19:00 06/13/18 21:10 Tylenol - PO Not Given Q6H LEENA Aspirin 81 mg 06/13/18 10:00 06/13/18 09:28 Ecotrin - PO 81 mg DAILY [facility] Administration Atorvastatin Calcium 40 mg 06/12/18 22:00 06/13/18 21:10 Lipitor - PO Not Given HS [facility] Diphenhydramine HCl 25 mg 06/12/18 18:50 06/12/18 20:23 Benadryl Injection - IVPB 25 mg Q6H PRN Administration FOR ITCHING Diphenhydramine HCl 25 mg 06/12/18 18:50 Benadryl - PO Q6H PRN FOR ITCHING Enoxaparin Sodium 40 mg 06/13/18 10:00 06/13/18 09:44 Lovenox - SQ 40 mg DAILY [facility] Administration Escitalopram Oxalate 20 mg 06/13/18 10:00 06/13/18 09:28 Lexapro - PO 20 mg DAILY [facility] Administration Fentanyl 25 mcg 06/12/18 19:06 Sublimaze Injection - IVPUSH [id number] PRN PAIN-PACU ORDER X 4 DOSES ONLY Gabapentin 300 mg 06/12/18 22:00 06/14/18 05:53 Neurontin - PO Not Given TID [facility] Dextrose/Lactated Ringer's 1,000 mls @ 125 mls/hr 06/13/18 18:00 06/14/18 03: 16 D5-Lr - IV 125 mls/hr ASDIR [facility] Administration Insulin Aspart 1 vial 06/13/18 07:00 06/14/18 06:16 Novolog Vial Sliding Scale - SQ 2 units TIDAC [facility] Administration Protocol Insulin Detemir 30 units 06/14/18 07:00 06/14/18 06:15 Levemir Vial SQ 30 units AM [facility] Administration Ketorolac Tromethamine 15 mg 06/12/18 21:45 06/13/18 19:42 Toradol Injection - IVPUSH 06/17/18 21:44 15 mg Q6H [facility] Administration Lisinopril 5 mg 06/13/18 10:00 06/13/18 09:27 Prinivil PO 5 mg DAILY [facility] Administration Metformin HCl 1,000 mg 06/13/18 07:00 06/14/18 06:10 Glucophage - PO Not Given DAILY@0700 [facility] Metoclopramide HCl 10 mg 06/12/18 18:50 Reglan Injection - IVPUSH Q6H PRN NAUSEA AND/OR VOMITING Ondansetron HCl 8 mg 06/12/18 18:50 Zofran Injection IVPB Q8H PRN NAUSEA Ondansetron HCl 4 mg 06/12/18 19:06 Zofran Injection IVPUSH Q6H PRN NAUSEA AND/OR VOMITING Oxycodone HCl 5 mg 06/13/18 09:34 Roxicodone - PO Q4H PRN PAIN LEVEL 1-5 Oxycodone HCl 10 mg 06/13/18 09:35 Roxicodone - PO Q4H PRN PAIN LEVEL 6-10 Pantoprazole Sodium 40 mg 06/13/18 10:00 06/13/18 11:03 Protonix - PO 40 mg DAILY [facility] Administration Prochlorperazine Edisylate 25 mg 06/12/18 18:50 Compazine Injection - IVPB Q6H PRN NAUSEA AND/OR VOMITING Sitagliptin Phosphate 50 mg 06/13/18 07:00 06/14/18 06:10 Januvia - PO Not Given DAILY@0700 [facility] Sodium Chloride 2 spray 06/13/18 20:29 06/13/18 21:12 [place] Nasal [place] - NS 2 sprays Q12H PRN Administration NASAL CONGESTION Zolpidem Tartrate 5 mg 06/12/18 18:52 Ambien - PO HS PRN INSOMNIA ASSESSMENT/PLAN: 57 yo female with PMH HTN, HLD, IDDM, POD 1 total abdominal hysterectomy and BSO. NEURO -CVA/TIA neurology consult appreciated Continue ASA 81 mg, Increase lipitor from 40 mg PO HS to [address] head and CTA negative for acute ischemic infarct, Carotid US negative swallow eval failed yesterday, NPO for now including meds. Repeat bedside swallow eval this AM and advance diet if tolerates b.p has been borderline low, will bolus 1L LR and reevaluate as patient is likel fluid behind from perioperative period ECHO with bubble study pending Cardiology evaluation requested CARDIO -HTN - Lisinopril 5 mg PO Daily once tolerating PO -HLD - Lipitor as above PULMONARY -no acute pulmonary pathology at this time GI -Monitor for signs of ileus ENDOCRINE -IDDM Continue metformin, januvia, Levemir 75 units AM (75 is home dose, adjusted to 30 units this AM as pt was NPO), ISS ACHS for further glycemic control PROPHYLAXIS -continue Lovenox 40 mg SQ Daily -no GI prophylaxis indicated FEN -LR @ 125 cc/hr -monitor and replete -NPO but can advance to full diabetic diet pending bedside swallow eval DISPOSITION Stable for transfer out of ICU to med/surg or discharge home pending surgery recommendation Visit type - Emergency Visit Emergency Visit: No - New Patient This patient is new to me today: No - Critical Care Critical Care patient: No
[2018-06-14] MEDS ORDERED: MAGNESIUM SULF 50% (8.12 MEQ/2 ML-1 GM VIAL) IVPB ONE (08:55)
[2018-06-14] MEDS: ASPIRIN COATED 81 MG TABLET.EC PO SCH (09:30)
[2018-06-14] MEDS: KETOROLAC TROMETHAMINE 30 MG/1 ML VIAL IVPUSH SCH ×4 (09:31→22:08)
[2018-06-14] MEDS: LISINOPRIL 5 MG TABLET (FP) PO SCH (09:31)
[2018-06-14] MEDS: ESCITALOPRAM OXALATE 20 MG TABLET (FP) PO SCH (09:31)
[2018-06-14] MEDS: PANTOPRAZOLE 40 MG TABLET (FP) PO SCH (09:31)
[2018-06-14] MEDS: ENOXAPARIN NA (PORCINE) 40 MG/0.4 ML DISP.SYRIN SQ SCH (09:36)
[2018-06-14 09:37] LABS: HEMATOCRIT 29.5 % (32.4-45.2); HEMOGLOBIN 9.9 GM/dL (10.7-15.3); MCH 27.8 pg (25.7-33.7); MCHC 33.5 g/dl (32.0-36.0); MEAN CELL VOLUME 82.9 fl (80-96); MEAN PLT VOLUME 7.3 fl (7.5-11.1); PLATELET COUNT 312 K/MM3 (134-434); RBC 3.56 M/mm3 (3.60-5.2); RDW 15.9 % (11.6-15.6); WHITE BLOOD COUNT 6.6 K/mm3 (4.0-10.0)
[2018-06-14 10:08] LABS: ANION GAP 4 MMOL/L (8-16); BLOOD UREA NITROGEN 11 mg/dL (7-18); CALCIUM 7.5 mg/dL (8.5-10.1); CHLORIDE 108 mmol/L (98-107); CO2 29 mmol/L (21-32); CREATININE 0.6 mg/dL (0.55-1.3); GLUCOSE,RANDOM 119 mg/dL (74-106); MAGNESIUM 1.3 mg/dL (1.8-2.4); PHOSPHOROUS 2.5 mg/dL (2.5-4.9); POTASSIUM 4.2 mmol/L (3.5-5.1); SODIUM 140 mmol/L (136-145)
--- NOTE | 2018-06-14 11:29 | PN ---
Progress Note (short form) - Note Progress Note: 57yo F s/p Total abdominal hysterectomy POD 2, pt seen and examined in the ICU. Pt stroke like symptoms have completely resolved. Neurology feel she suffered a TIA. Pt states that she is hungry and would like to eat. Complaining of some mild abd pain. States that she is passing flatus and urinating well. Last Vital Signs Temp Pulse Resp BP Pulse Ox 98.0 F 73 14 110/54 L 99 06/14/18 10:00 06/14/18 10:00 06/14/18 10:00 06/14/18 10:00 06/14/18 08:00 CBC, BMP 06/14/18 09:10 06/14/18 09:10 PE: Gen: A&O x3 Resp: breathing comfortably Neuro: cranial nerves intact Abd: soft, nondistended, mild tenderness, incision is clean with no erythema or discharge. Ext: no edema, no weakness Problem List - Problems (1) S/P hysterectomy with oophorectomy Assessment/Plan: Plan -pt appears to be doing well from [employer]IP[employer] standpoint, would advance diet and have OOB/ambulate if ok with ICU team -cont pain control -DVT ppx -appreciate neuro recs Code(s): Z90.710 - ACQUIRED ABSENCE OF BOTH CERVIX AND UTERUS; Z90.721 - ACQUIRED ABSENCE OF OVARIES, UNILATERAL
[2018-06-14] MEDS ORDERED: LACTATED RINGERS SOLUTION 1000 ML INFUS.BAG IV ONE (11:45)
[2018-06-14] MEDS ORDERED: CLOPIDOGREL BISULFATE 75 MG TABLET (FP) PO SCH (12:00)
--- NOTE | 2018-06-14 12:03 | PN ---
Teaching Attending Note Name of Resident: Tomasz Stratton ATTENDING PHYSICIAN STATEMENT I saw and evaluated the patient. I reviewed the resident's note and discussed the case with the resident. I agree with the resident's findings and plan as documented. SUBJECTIVE: Patient seen and examined in the ICU. Awake and alert. Some mild discomfort at the surgical site. According to house staff that saw the patient yesterday, her right facial droop is significantly better but there still is a slight residual. No CP or SOB. Intake & Output 06/11/18 06/12/18 06/13/18 06/14/18 23:59 23:59 23:59 23:59 Intake Total 2100 1750 1941 Output Total 900 1100 300 Balance 4897 200 1547 Weight 150 lb Last Vital Signs Temp Pulse Resp BP Pulse Ox 98.0 F 73 14 110/54 L 99 06/14/18 10:00 06/14/18 10:00 06/14/18 10:00 06/14/18 10:00 06/14/18 08:00 Active Medications Acetaminophen (Tylenol -) 650 mg PO Q6H [facility] Last Admin: 06/14/18 07:00 Dose: Not Given Aspirin (Ecotrin -) 81 mg PO DAILY [facility] Last Admin: 06/14/18 09:30 Dose: Not Given Atorvastatin Calcium (Lipitor -) 80 mg PO HS [facility] Clopidogrel Bisulfate (Plavix -) 75 mg PO DAILY [facility] Diphenhydramine HCl (Benadryl Injection -) 25 mg IVPB Q6H PRN PRN Reason: FOR ITCHING Last Admin: 06/12/18 20:23 Dose: 25 mg Diphenhydramine HCl (Benadryl -) 25 mg PO Q6H PRN PRN Reason: FOR ITCHING Enoxaparin Sodium (Lovenox -) 40 mg SQ DAILY [facility] Last Admin: 06/14/18 09:36 Dose: 40 mg Escitalopram Oxalate (Lexapro -) 20 mg PO DAILY [facility] Last Admin: 06/14/18 09:31 Dose: Not Given Fentanyl (Sublimaze Injection -) 25 mcg IVPUSH [id number] PRN PRN Reason: PAIN-PACU ORDER X 4 DOSES ONLY Gabapentin (Neurontin -) 300 mg PO TID [facility] Last Admin: 06/14/18 05:53 Dose: Not Given Dextrose/Lactated Ringer's (D5-Lr -) 1,000 mls @ 125 mls/hr IV ASDIR [facility] Last Admin: 06/14/18 09:47 Dose: 125 mls/hr Insulin Aspart (Novolog Vial Sliding Scale -) 1 vial SQ TIDAC [facility]; Protocol Last Admin: 06/14/18 11:50 Dose: Not Given Insulin Detemir (Levemir Vial) 30 units SQ AM [facility] Last Admin: 06/14/18 06:15 Dose: 30 units Ketorolac Tromethamine (Toradol Injection -) 15 mg IVPUSH Q6H [facility] Stop: 06/17/18 21:44 Last Admin: 06/14/18 09:51 Dose: Not Given Lisinopril (Prinivil) 5 mg PO DAILY [facility] Last Admin: 06/14/18 09:31 Dose: Not Given Metformin HCl (Glucophage -) 1,000 mg PO DAILY@0700 [facility] Last Admin: 06/14/18 06:10 Dose: Not Given Metoclopramide HCl (Reglan Injection -) 10 mg IVPUSH Q6H PRN PRN Reason: NAUSEA AND/OR VOMITING Ondansetron HCl (Zofran Injection) 8 mg IVPB Q8H PRN PRN Reason: NAUSEA Ondansetron HCl (Zofran Injection) 4 mg IVPUSH Q6H PRN PRN Reason: NAUSEA AND/OR VOMITING Oxycodone HCl (Roxicodone -) 5 mg PO Q4H PRN PRN Reason: PAIN LEVEL 1-5 Oxycodone HCl (Roxicodone -) 10 mg PO Q4H PRN PRN Reason: PAIN LEVEL 6-10 Pantoprazole Sodium (Protonix -) 40 mg PO DAILY [facility] Last Admin: 06/14/18 09:31 Dose: Not Given Prochlorperazine Edisylate (Compazine Injection -) 25 mg IVPB Q6H PRN PRN Reason: NAUSEA AND/OR VOMITING Sitagliptin Phosphate (Januvia -) 50 mg PO DAILY@0700 [facility] Last Admin: 06/14/18 06:10 Dose: Not Given Sodium Chloride ([place] Nasal [place] -) 2 spray NS Q12H PRN PRN Reason: NASAL CONGESTION Last Admin: 06/13/18 21:12 Dose: 2 sprays Zolpidem Tartrate (Ambien -) 5 mg PO HS PRN PRN Reason: INSOMNIA GEN: A&O, no acute distress HEENT: moist mucus membranes NECK: supple HEART: RRR, no murmurs noted LUNGS: CTA b/l ABDOMEN: Soft, nontender, vertical surgical incision site clean and dry without erythema, 26 surgical carlos noted EXTREMITIES: 2+ pulses, no calf tenderness or edema NEURO: mild right facial droop. 5/5 strength throughout Laboratory Results - last 24 hr 06/13/18 06/13/18 06/13/18 11:38 12:54 13:41 WBC RBC Hgb Hct MCV MCH MCHC RDW Plt Count MPV Sodium Potassium Chloride Carbon Dioxide Anion Gap BUN Creatinine Creat Clearance w eGFR POC Glucometer 145 107 104 Random Glucose Calcium Phosphorus Magnesium Total Bilirubin AST ALT Alkaline Phosphatase Total Protein Albumin 06/13/18 06/13/18 06/13/18 15:00 15:00 17:41 WBC 7.6 RBC 3.85 Hgb 11.0 Hct 32.1 L MCV 83.3 MCH 28.5 MCHC 34.3 RDW 15.9 H Plt Count 331 MPV 8.0 Sodium 136 Potassium 4.5 Chloride 103 Carbon Dioxide 28 Anion Gap 4 L BUN 26 H Creatinine 0.8 Creat Clearance w eGFR > 60 POC Glucometer 78 Random Glucose 99 Calcium 7.6 L Phosphorus 3.3 Magnesium 1.6 L Total Bilirubin 0.3 AST 41 H ALT 20 Alkaline Phosphatase 92 Total Protein 5.5 L Albumin 2.4 L 06/14/18 06:08 WBC RBC Hgb Hct MCV MCH MCHC RDW Plt Count MPV Sodium Potassium Chloride Carbon Dioxide Anion Gap BUN Creatinine Creat Clearance w eGFR POC Glucometer 168 Random Glucose Calcium Phosphorus Magnesium Total Bilirubin AST ALT Alkaline Phosphatase Total Protein Albumin ASSESSMENT/PLAN: TIA: etiology to be determined HTN HPL IDDM POD #1: ROSANGELA & BSO ASA PT ECHO Cardiology evaluation VTE prophylaxis Glycemic control Lipitor IVF resuscitation Incentive Spirometry 4W or 4S monitoring Dr Clark
--- NOTE | 2018-06-14 13:53 | PN ---
Progress Note, [employer]IL[employer] APPRENTICE - Note Progress Note: Much improved. Facial weakness resolved, speech no longer dysarthric, swallowing overtly intact. (-) 3 oz water test, good mastication. Rec: Trial of reg diet, thin liquid with supervision, oob if possible
--- NOTE | 2018-06-14 15:33 | CON.CARD ---
Consult Consult Specialty:: Cardiology Referred by:: ICU Reason for Consultation:: TIA - History of Present Illness Chief Complaint: facial droop History of Present Illness: 57F h/o HTN, HLD, DM, POD2 ROSANGELA/BSO with right facial weakness, numbness on POD1 , now resolved. No chest pain, palps, dizziness, dyspnea, edema. No prior cardiac hx or prior stroke, TIA. - Past Medical History ...LMP Comment: 2016 - Alcohol/Substance Use Hx Alcohol Use: No - Smoking History Smoking history: Current some day smoker Have you smoked in the past 12 months: Yes Aproximately how many cigarettes per day: 3 Home Medications - Allergies Allergies/Adverse Reactions: Allergies Allergy/AdvReac Type Severity Reaction Status Date / Time No Known Allergies Allergy Verified 06/12/18 09:23 - Home Medications Home Medications: Ambulatory Orders Atorvastatin Ca [Lipitor] 40 mg PO HS 09/06/14 Lisinopril [Prinivil -] 5 mg PO DAILY 09/06/14 Aspirin [Ecotrin] 81 mg PO DAILY 01/22/15 Escitalopram Oxalate [Lexapro -] 20 mg PO ASDIR 01/22/15 Gabapentin [Neurontin] 300 mg PO TID #30 capsule 01/22/15 Pantoprazole Sodium [Protonix] 40 mg PO ASDIR 01/22/15 Sitagliptin Phos/Metformin HCl [Janumet 50-1,000 mg Tablet] 1 tab PO ASDIR 01/22 Insulin Degludec [Tresiba Flextouch U-100] 75 unit SQ DAILY 06/12/18 Insulin Sliding Scale [Novolog Vial Sliding Scale -] 0 units SQ AC PRN 06/12/18 Zolpidem Tartrate [Ambien] 5 mg PO PRN PRN 06/12/18 Tramadol HCl 50 mg PO Q6H PRN #30 tablet MDD 4 06/13/18 Family Disease History - Family Disease History Family History: Unremarkable Review of Systems - Review of Systems Constitutional: reports: No Symptoms Eyes: reports: No Symptoms HENT: reports: No Symptoms Neck: reports: No Symptoms Cardiovascular: reports: No Symptoms Respiratory: reports: No Symptoms Gastrointestinal: reports: No Symptoms Genitourinary: reports: No Symptoms Musculoskeletal: reports: No Symptoms Integumentary: reports: No Symptoms Neurological: reports: No Symptoms Endocrine: reports: No Symptoms Hematology/Lymphatic: reports: No Symptoms Psychiatric: reports: No Symptoms Vital Signs: Vital Signs Temperature 97.9 F 06/14/18 14:00 Pulse Rate 75 06/14/18 14:00 Respiratory Rate 15 06/14/18 14:00 Blood Pressure 119/61 06/14/18 14:00 O2 Sat by Pulse Oximetry (%) 99 06/14/18 08:00 Constitutional: Yes: No Distress, Calm Eyes: Yes: Conjunctiva Clear, EOM Intact HENT: Yes: Atraumatic, Normocephalic Neck: Yes: Supple, Trachea Midline Respiratory: Yes: Regular, CTA Bilaterally Gastrointestinal: Yes: Normal Bowel Sounds, Soft Cardiovascular: Yes: Regular Rate and Rhythm JVD: No Carotid Bruit: No PMI: Non-Displaced Heart Sounds: Yes: S1, S2 Murmur: No: Systolic Murmur Musculoskeletal: No: Back Pain Extremities: No: Cold Edema: No Peripheral Pulses WNL: Yes Peripheral Pulses: 2+ Left Doralis Pedis, 2+ Right Dorsalis Pedis Integumentary: No: Jaundice Neurological: Yes: Alert, Oriented Psychiatric: No: Agitated - Other Data Labs, Other Data: CBC, BMP 06/14/18 09:10 06/14/18 09:10 Assessment/Plan carotid dopplers: minimal atherosclerosis without hemodynamically significant stenosis head CT: no infarct EKG sinus, nl intervals no ischemic changes echo 06/2018 nl LV/RV, mild MR, mild TR, neg bubble study tele: sinus 57F h/o HTN, HLD, DM, POD2 ROSANGELA/BSO with right facial weakness, numbness facial weakness, numbness, TIA - neuro following - monitoring on tele, no events - carotid dopplers neg - echo nl LV function, neg bubble study - continue lipitor, aspirin, plavix HTN -cont lisinopril HLD - cont statin
--- NOTE | 2018-06-14 15:58 | ECHO ---
Name: ROMAINE GARCIA Exam:Adult Echocardiogram Study Date: 06/14/2018 02:08 PM Age: 57 yrs Reason For Study: r/o cva / bubble Height: 64 in Weight: 150 lb BSA: 1.7 m2 BP: 119/61 mmHg MMode/2D Measurements & Calculations IVSd: 0.88 cm Ao root diam: 2.8 cm LVIDd: 4.2 cm LA dimension: 3.1 cm LVIDs: 2.8 cm LVPWd: 0.85 cm EDV(Teich): 77.1 ml LVOT diam: 2.0 cm ESV(Teich): 28.6 ml Doppler Measurements & Calculations MV E max deon: 118.0 cm/sec Ao V2 max: 178.1 cm/sec MV A max deon: 92.3 cm/sec Ao max P.7 mmHg MV E/A: 1.3 Ao V2 mean: 106.8 cm/sec Ao mean P.8 mmHg Ao V2 VTI: 33.8 cm MICHAEL(I,D): 1.9 cm2 MICHAEL(V,D): 1.5 cm2 LV V1 max P.8 mmHg SV(LVOT): 66.0 ml LV V1 mean P.7 mmHg LV V1 max: 83.9 cm/sec LV V1 mean: 60.0 cm/sec LV V1 VTI: 21.1 cm TR max deon: 229.4 cm/sec Med Peak E' Deon: 9.7 cm/sec TR max P.0 mmHg Med E/e': 12.2 Lat Peak E' Deon: 10.2 cm/sec Lat E/e': 11.6 Procedure A complete two-dimensional transthoracic echocardiogram was performed (2D, M-mode, Doppler and color flow Doppler). A saline contrast injection was performed to assess for cardiac shunting. Left Ventricle The left ventricular size, thickness and function are normal. The left ventricular ejection fraction is normal. Ejection Fraction = 60-65%. The left ventricular wall motion is normal. Right Ventricle The right ventricle is normal in size and function. Atria Normal left and right atrial size and function. The interatrial septum is intact with no evidence for an atrial septal defect. Negative bubble study. Mitral Valve There is mild mitral regurgitation. Tricuspid Valve There is mild tricuspid regurgitation. There was insufficient TR detected to calculate RV systolic pr essure. Aortic Valve The aortic valve is trileaflet. No hemodynamically significant valvular aortic stenosis. No aortic regurgitation is present. Pulmonic Valve There is no pulmonic valvular regurgitation. Great Vessels The aortic root is normal size. Pericardium/Pleura There is no pericardial effusion. Interpretation Summary The left ventricular size, thickness and function are normal The right ventricle is normal in size and function. There is mild mitral regurgitation. There is mild tricuspid regurgitation. Negative bubble study. MD Bruce Mireles 06/14/2018 03:58 PM
--- NOTE | 2018-06-14 16:14 | PN ---
Progress Note (short form) - Note Progress Note: Recent events noted. Pt reports no further symptoms of face droop/weakness. Ambulating, voiding, tolerating regular diet, passing flatus. 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 Introp findings d/w patient. 2. s/p TIA. ECHO, carotid dopplers, Head CT w/u negative. On Plavix and ASA. 3. type II DM- continue ISS. Control has been good 4. Post op care- ok to [facility]IV. Anticipate d/c home in AM tomorrow. F/u with me in office in 2 weeks for staple removal. Discussed pain control at home- Tylenol and Aleve ATC. Oxycodone only for severe BTP.
--- NOTE | 2018-06-14 17:11 | PN ---
Progress Note (short form) - Note Progress Note: HPI 57 year old female history of HTN,HLD,IDDM. Patient came with total hysterectomy on june 12 and on june 13. She has sudden onset right face droopiness and arm weakness. she is on aspirin and statin at home and aspirin was stopped due to surgery. I spent 35 minute doing critical care. Patient still in icu and feeling much better. She was started on plavix , i advice to stop aspirin. She cant get mri as she still have metal carlos in abdomen. PHYSICAL EXAMINATION Alert oriented x speech is normal eomi pupils reactive, no face asymmetry motor 5/5 all ext , there is ?mild right hand infant caregiver weakness sensation is normal gait and coordination is normal ct head and cta of brain is normal carotid ultrasound is normal Assessment : 57 year old female history of DM,HTN,HLD, came for abdominal hysterectomy and had tia on post op day two. Plan: continue lipitor 80 mg once a day continue plavix and stop aspirin mri of brain sonce stable. diagnosis and prognosis was discussed with patient and family Thanking you so much Henrique Block MD
[2018-06-14] MEDS ORDERED: ATORVASTATIN CA 80 MG TABLET (FP) PO SCH (22:00)
[2018-06-15] MEDS ORDERED: SODIUM CHLORIDE NASAL SPRAY 44 ML BOTTLE NS PRN (04:43)
[2018-06-15] MEDS ORDERED: PROCHLORPERAZINE INJECTION 10 MG/2 ML VIAL IVPB PRN (04:43)
[2018-06-15] MEDS ORDERED: ZOLPIDEM TARTRATE 5 MG TABLET PO PRN (04:43)
[2018-06-15] MEDS ORDERED: DEXTROSE 5%-LACTATED RINGERS 1,000 ML IV SCH (04:43)
[2018-06-15] MEDS ORDERED: ONDANSETRON 4 MG/2 ML VIAL IVPUSH PRN (04:43)
[2018-06-15] MEDS ORDERED: diphenhydrAMINE HCL 25 MG CAPSULE (FP) PO PRN (04:43)
[2018-06-15] MEDS ORDERED: oxyCODONE HCL 5 MG TABLET PO PRN ×2 (04:43)
[2018-06-15] MEDS ORDERED: METOCLOPRAMIDE HCL INJECTION 10 MG/2 ML VIAL IVPUSH PRN (04:43)
[2018-06-15] MEDS: ACETAMINOPHEN 325 MG TABLET (FP) PO SCH ×2 (05:56→12:46)
[2018-06-15] MEDS ORDERED: GABAPENTIN 300 MG CAPSULE (FP) PO SCH (06:00)
[2018-06-15] MEDS: INSULIN SLIDING SCALE (NOVOLOG) 1 VIAL SQ SCH ×2 (06:01→11:31)
[2018-06-15] MEDS ORDERED: INSULIN (LEVEMIR) 100 UNITS/ML UNITS SQ SCH (07:00)
[2018-06-15] MEDS ORDERED: metFORMIN HCL 500 MG TABLET (FP) PO SCH (07:00)
[2018-06-15] MEDS ORDERED: sitaGLIPtin PHOSPHATE 50 MG TABLET PO SCH (07:00)
--- NOTE | 2018-06-15 09:29 | DS ---
Physical Exam: SUBJECTIVE: Patient seen and examined OBJECTIVE: Vital Signs Temperature 98.4 F 06/15/18 02:00 Pulse Rate 71 06/15/18 02:00 Respiratory Rate 18 06/15/18 02:00 Blood Pressure 135/67 06/15/18 02:00 O2 Sat by Pulse Oximetry (%) 95 06/14/18 21:00 PHYSICAL EXAM GENERAL: The patient is awake, alert, and fully oriented, in no acute distress. HEAD: Normal with no signs of trauma. EYES: PERRL, extraocular movements intact, sclera anicteric, conjunctiva clear. ENT: Ears normal, nares patent, oropharynx clear without exudates, moist mucous membranes. NECK: Trachea midline, full range of motion, supple. LUNGS: Breath sounds equal, clear to auscultation bilaterally, no wheezes, no crackles, no accessory muscle use. HEART: Regular rate and rhythm ABDOMEN: Soft, mild diffuse tenderness, nondistended, normoactive bowel sounds, no guarding, no rebound, incision clean with no erythema or discharge Extremities no edema. NEUROLOGICAL: Cranial nerves II through XII grossly intact. Normal speech, gait not observed. PSYCH: Normal mood, normal affect. SKIN: Warm, dry, normal turgor, no rashes or lesions noted. LABS CBC,CMP WBC 6.6 K/mm3 (4.0-10.0) 06/14/18 09:10 RBC 3.56 M/mm3 (3.60-5.2) L 06/14/18 09:10 Hgb 9.9 GM/dL (10.7-15.3) L 06/14/18 09:10 Hct 29.5 % (32.4-45.2) L 06/14/18 09:10 MCV 82.9 fl (80-96) 06/14/18 09:10 MCH 27.8 pg (25.7-33.7) 06/14/18 09:10 MCHC 33.5 g/dl (32.0-36.0) 06/14/18 09:10 RDW 15.9 % (11.6-15.6) H 06/14/18 09:10 Plt Count 312 K/MM3 (134-434) 06/14/18 09:10 MPV 7.3 fl (7.5-11.1) L 06/14/18 09:10 Sodium 140 mmol/L (136-145) 06/14/18 09:10 Potassium 4.2 mmol/L (3.5-5.1) 06/14/18 09:10 Chloride 108 mmol/L (98-107) H 06/14/18 09:10 Carbon Dioxide 29 mmol/L (21-32) 06/14/18 09:10 Anion Gap 4 MMOL/L (8-16) L 06/14/18 09:10 BUN 11 mg/dL (7-18) 06/14/18 09:10 Creatinine 0.6 mg/dL (0.55-1.3) 06/14/18 09:10 Creat Clearance w eGFR > 60 (>60) 06/14/18 09:10 POC Glucometer 142 UNITS (80-120) 06/15/18 05:54 Random Glucose 119 mg/dL (74-106) H 06/14/18 09:10 Calcium 7.5 mg/dL (8.5-10.1) L 06/14/18 09:10 Phosphorus 2.5 mg/dL (2.5-4.9) 06/14/18 09:10 Magnesium 1.3 mg/dL (1.8-2.4) L 06/14/18 09:10 Total Bilirubin 0.3 mg/dL (0.2-1) 06/13/18 15:00 AST 41 U/L (15-37) H 06/13/18 15:00 ALT 20 U/L (13-61) 06/13/18 15:00 Alkaline Phosphatase 92 U/L (45-117) 06/13/18 15:00 Total Protein 5.5 g/dl (6.4-8.2) L 06/13/18 15:00 Albumin 2.4 g/dl (3.4-5.0) L 06/13/18 15:00 HOSPITAL COURSE: Date of Admission:06/12/18 Date of Discharge: 06/15/18 57yo F presented to the Hospital for planned Total abdominal hysterectomy for cystic ovarian mass and multiple masses in the uterus. Pt tolerated the procedure well and was admitted for pain control and observation. On POD 1, pt developed acute facial weakness and a stroke code was called. Pt had full stroke work up and was evaluated by Neurology who felt pt had a TIA. By POD 2 symptoms had completely resolved. Pt tolerating PO and ambulating well. Pt will was started on Plavix as recommended by Neurology. Pt will follow up with Neurology in [address] Casillas in 2 weeks. Minutes to complete discharge: 20 Visit type - Case Type Case Type: Scheduled - Emergency Emergency Visit: No - New patient This patient is new to me today: No
[2018-06-15] MEDS ORDERED: KETOROLAC TROMETHAMINE 30 MG/1 ML VIAL IVPUSH SCH (09:45)
--- NOTE | 2018-06-15 09:59 | PN ---
Progress Note (short form) - Note Progress Note: 57 year old female history of HTN,HLD,IDDM. Patient came with total hysterectomy on june 12 and on june 13. She has sudden onset right face droopiness and arm weakness. she is on aspirin and statin at home and aspirin was stopped due to surgery. I spent 35 minute doing critical care. Patient still in icu and feeling much better. She was started on plavix , i advice to stop aspirin. She cant get mri as she still have metal carlos in abdomen. she cant get mri for another two weeks PHYSICAL EXAMINATION Alert oriented x speech is normal eomi pupils reactive, no face asymmetry motor 5/5 all ext , there is right hand strategies analyst is normal today, she had iv line and she feels she cant put maximum effort due to pain sensation is normal gait and coordination is normal ct head and cta of brain is normal carotid ultrasound is normal Assessment : 57 year old female history of DM,HTN,HLD, came for abdominal hysterectomy and had tia on post op day three Plan: continue lipitor 80 mg once a day continue plavix mri of brain is pending, as she has carlos in her belly. follow up outpatient Thanking you so much Henrique Block MD
[2018-06-15] MEDS ORDERED: LISINOPRIL 5 MG TABLET (FP) PO SCH (10:00)
[2018-06-15] MEDS ORDERED: CLOPIDOGREL BISULFATE 75 MG TABLET (FP) PO SCH (10:00)
[2018-06-15] MEDS ORDERED: PANTOPRAZOLE 40 MG TABLET (FP) PO SCH (10:00)
[2018-06-15] MEDS ORDERED: ENOXAPARIN NA (PORCINE) 40 MG/0.4 ML DISP.SYRIN SQ SCH (10:00)
[2018-06-15] MEDS ORDERED: ESCITALOPRAM OXALATE 20 MG TABLET (FP) PO SCH (10:00)
--- NOTE | 2018-06-15 10:40 | PN ---
Progress Note (short form) - Note Progress Note: s: no cp sob palps dizzy o: Vital Signs Period Temp Pulse Resp BP Sys/Dozier Pulse Ox Last 24 Hr 97.9 F-98.4 F 71-84 14-18 108-136/56-67 95 Constitutional: Yes: No Distress, Calm Eyes: Yes: Conjunctiva Clear, Neck: Yes: Supple, Trachea Midline Respiratory: Yes: Regular, CTA Bilaterally Gastrointestinal: Yes: Normal Bowel Sounds, Soft Cardiovascular: Yes: Regular Rate and Rhythm JVD: No Heart Sounds: Yes: S1, S2 Murmur: No: Systolic Murmur Musculoskeletal: No: Back Pain Extremities: No: Cold Edema: No Peripheral Pulses: 2+ Left Doralis Pedis, 2+ Right Dorsalis Pedis Integumentary: No: Jaundice Neurological: Yes: Alert, Oriented Psychiatric: No: Agitated Current Medications Generic Name Dose Route Start Last Admin Trade Name Freq PRN Reason Stop Dose Admin Acetaminophen 650 mg 06/15/18 06:00 06/15/18 05:56 Tylenol - PO 650 mg Q6HPO LEENA Administration Atorvastatin Calcium 80 mg 06/14/18 22:00 06/14/18 22:10 Lipitor - PO 80 mg HS LEENA Administration Clopidogrel Bisulfate 75 mg 06/15/18 10:00 Plavix - PO DAILY [facility] Diphenhydramine HCl 25 mg 06/15/18 04:43 Benadryl Injection - IVPB Q6H PRN FOR ITCHING Diphenhydramine HCl 25 mg 06/15/18 04:43 Benadryl - PO Q6H PRN FOR ITCHING Enoxaparin Sodium 40 mg 06/15/18 10:00 Lovenox - SQ DAILY [facility] Escitalopram Oxalate 20 mg 06/15/18 10:00 Lexapro - PO DAILY LEENA Gabapentin 300 mg 06/15/18 06:00 06/15/18 05:54 Neurontin - PO 300 mg TID LEENA Administration Dextrose/Lactated Ringer's 1,000 mls @ 125 mls/hr 06/15/18 04:43 D5-Lr - IV ASDIR [facility] Insulin Aspart 1 vial 06/15/18 07:00 06/15/18 06:01 Novolog Vial Sliding Scale - SQ Not Given TIDAC [facility] Protocol Insulin Detemir 30 units 06/15/18 07:00 06/15/18 05:59 Levemir Vial SQ 30 units AM [facility] Administration Ketorolac Tromethamine 15 mg 06/15/18 09:45 Toradol Injection - IVPUSH 06/17/18 21:44 Q6H LEENA Lisinopril 5 mg 06/15/18 10:00 Prinivil PO DAILY [facility] Metformin HCl 1,000 mg 06/15/18 07:00 06/15/18 05:59 Glucophage - PO 1,000 mg DAILY@0700 [facility] Administration Metoclopramide HCl 10 mg 06/15/18 04:43 Reglan Injection - IVPUSH Q6H PRN NAUSEA AND/OR VOMITING Ondansetron HCl 4 mg 06/15/18 04:43 Zofran Injection IVPUSH Q6H PRN NAUSEA AND/OR VOMITING Oxycodone HCl 5 mg 06/15/18 04:43 Roxicodone - PO Q4H PRN PAIN LEVEL 1-5 Oxycodone HCl 10 mg 06/15/18 04:43 Roxicodone - PO Q4H PRN PAIN LEVEL 6-10 Pantoprazole Sodium 40 mg 06/15/18 10:00 Protonix - PO DAILY [facility] Prochlorperazine Edisylate 25 mg 06/15/18 04:43 Compazine Injection - IVPB Q6H PRN NAUSEA AND/OR VOMITING Sitagliptin Phosphate 50 mg 06/15/18 07:00 06/15/18 05:59 Januvia - PO 50 mg DAILY@0700 [facility] Administration Sodium Chloride 2 spray 06/15/18 04:43 [place] Nasal [place] - NS Q12H PRN NASAL CONGESTION Zolpidem Tartrate 5 mg 06/15/18 04:43 Ambien - PO HS PRN INSOMNIA CBC, BMP 06/14/18 09:10 06/14/18 09:10 Assessment/Plan carotid dopplers: minimal atherosclerosis without hemodynamically significant stenosis head CT: no infarct EKG sinus, nl intervals no ischemic changes echo 06/2018 nl LV/RV, mild MR, mild TR, neg bubble study tele: sinus 57F h/o HTN, HLD, DM, POD2 ROSANGELA/BSO with right facial weakness, numbness facial weakness, numbness, TIA - neuro following - tele benign - carotid dopplers neg - echo nl LV function, neg bubble study - continue lipitor, aspirin, plavix HTN -cont lisinopril HLD - cont statin cardiac garay stable
[2018-06-15 14:55] VITALS: BP 140/72; PULSE 68; TEMP 98.4
--- NOTE | 2018-06-19 11:43 | PATH ---
Surgical Pathology Report Patient Name: ROMAINE GARCIA [facility]. Rec. #: [id number] /Age/Gender: 1960 (Age: 57) / F Account: [id number] Location: 4 W TELEMETRY U Taken: 06/12/2018 Received: 06/13/2018 Reported: 06/19/2018 Physicians: Yina Casillas MD Specimen(s) Received A: UTERUS, CERVIX, BILATERAL FALLOPIAN TUBES AND OVARIES B: OMENTUM Clinical History Cyst of left ovary Intraoperative Consult Diagnosis Left ovary, frozen section: Mucinous neoplasm, no definitive invasion identified. Defer to permanent sections for final classification. Elsie Ellis M.D., 06/12/2018 Final Diagnosis A. 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 LEFT TUBO-OVARIAN ADHESION. RIGHT OVARY WITH ENDOSALPINGIOSIS. RIGHT FALLOPIAN TUBE WITH PARATUBAL CYSTS. BILATERAL PARAMETRIUM, NEGATIVE FOR MALIGNANCY. WEAKLY PROLIFERATIVE ENDOMETRIUM. ENDOCERVICAL TISSUE WITH SQUAMOUS METAPLASIA AND NABOTHIAN CYSTS. Comment: Mucinous cyst lined by gastrointestinal-type epithelium with focal proliferation. The cells show focal mild nuclear enlargement, hyperchromasia, with occasional pseudostratification. Stroma shows focal marked inflammatory reaction with histocytes. No definitive stromal invasion identified. B. OMENTUM, EXCISION: ADIPOSE TISSUE CONSISTENT WITH OMENTUM SHOWING ACUTE INFLAMMATION. NEGATIVE FOR CARCINOMA. Electronically Signed Sebastian Ellis M.D. Gross Description A. Received fresh labeled "uterus, cervix, bilateral fallopian tubes and ovaries," is a 2393 g hysterectomy specimen including a uterus, cervix, and bilateral attached adnexa. The specimen measures 10.5 cm from superior to inferior, 4.5 cm from left to right and 4.0 cm from anterior to posterior, and displays a large left adnexal mass. The serosa is echeverria-pink and smooth. The attached cervix measures 4 cm in length and averages 2 cm in diameter. The ectocervix is echeverria, smooth and glistening. The endocervix is unremarkable. The endometrial cavity measures 5 cm in length and 2.0 cm from cornu to cornu. The endometrium is echeverria-red and averages 0.1 cm in thickness. The myometrium is echeverria-pink and measures up to 2.8 cm in thickness. The myometrium displays focal small intramural nodules, measuring up to 0.8 cm in greatest dimension. The right adnexa displays a 4.5 x 3.0 x 2.0 cm mass with adhesions, consistent with a fallopian tube and ovary. No definitive fimbriae are identified. Sectioning reveals a 2.8 x 2.2 x 1.0 cm ovary as well as a possible fallopian tube lumen. The ovarian parenchyma is echeverria-yellow and firm. The possible fallopian tube lumen is unremarkable. There is a 23.0 x 20.0 x 11.0 cm left intact adnexal mass. The outer surface is echeverria-pink and smooth. No definitive fallopian tube is identified. Sectioning reveals multiloculated cystic architecture with mucinous and necrotic material. No normal ovarian parenchyma is identified. A underwriting sales representative section is submitted for frozen section. Primary Care Nurse sections are submitted in 39 cassettes as follows: 1-frozen section residue; 2-anterior cervix; 3-anterior lower uterine segment; 4-posterior cervix; 5-posterior lower uterine segment; 6-left parametrium; 7-right parametrium; 8-5-zlmkbiga endomyometrium; 70-85-blwhlrkmb endomyometrium; 12-cross sections of possible right fallopian tube; 13-14-right ovary; 39-66-buhxpbye left fallopian tube; 17-39-left adnexal mass. B. Received in formalin labeled "omentum," is a 24.0 x 14.0 x 2.0 cm aggregate of yellow, lobulated adipose tissue, consistent with omentum. Sectioning reveals unremarkable fat. No masses are identified. Primary Care Nurse sections are submitted in 5 cassettes. 06/13/2018 [facility]06/13/2018
--- NOTE | 2018-06-19 11:56 | PATH ---
Cytology Non-Gynecological Report Patient Name: ROMAINE GARCIA Med. Rec. #: [id number] /Age/Gender: 1960 (Age: 57) / F Account: [id number] Location: 4 W TELEMETRY U Taken: 06/12/2018 Received: 06/13/2018 Reported: 06/19/2018 Physicians: Yina Casillas MD Specimen(s) Received PERITONEAL WASH Clinical History Left ovarian cyst Final Diagnosis PERITONEAL WASHING FOR CYTOLOGY: SATISFACTORY FOR EVALUATION NO MALIGNANT CELLS IDENTIFIED. MESOTHELIAL CELLS AND MACROPHAGES PRESENT. Comment: Also see concurrent pathology report [id number]. Electronically Signed Sebastian Ellis M.D. Gross Description Approximately 50cc of bloody fluid received fresh. One slide prepared.
== END 2018-06-15 17:47 | disposition home or self-care (01) | DRG 513 ==
LOC: JSAMEDAYSX 12:14 → J3W 21:17 → JICU 06-13 13:20 → J4W 06-14 19:59
PROVIDERS: ADMIT Obstetrics & Gynecology Gynecologic Oncology; ATTEND Obstetrics & Gynecology Gynecologic Oncology
PROC: 0UT20ZZ Resection of Bilateral Ovaries, Open Approach (ICD-10-PCS; 2018-06-12)
PROC: 0UT70ZZ Resection of Bilateral Fallopian Tubes, Open Approach (ICD-10-PCS; 2018-06-12)
PROC: 0DTU0ZZ Resection of Omentum, Open Approach (ICD-10-PCS; 2018-06-12)
PROC: 0UT90ZZ Resection of Uterus, Open Approach (ICD-10-PCS; principal; 2018-06-12 14:00)
DX: D28.7 Benign neoplasm of other specified female genital organs (principal); G45.9 Transient cerebral ischemic attack, unspecified; K66.0 Peritoneal adhesions (postprocedural) (postinfection); N85.8 Other specified noninflammatory disorders of uterus; E11.9 Type 2 diabetes mellitus without complications; Z79.4 Long term (current) use of insulin; I10 Essential (primary) hypertension; E78.5 Hyperlipidemia, unspecified; Z79.84 Long term (current) use of oral hypoglycemic drugs; F17.210 Nicotine dependence, cigarettes, uncomplicated
CPT/HCPCS: 36415; 70450-TC; 70496-TC; 80048; 80053; 82962; 83735; 84100; 85027; 86850; 86900; 86901; 88104; 88305-TC; 88307-TC; 88331-TC; 93306-TC; 93880-TC; 94760; 97116-GP; 97162-GP; J0131

== ENCOUNTER 2018-09-05 20:18 | Emergency (ER) | payer OTHER | END 2018-09-05 21:39 | disposition home or self-care (01) | LOC: JERFT 20:18 ==

== ENCOUNTER 2018-11-16 08:13 | Emergency (ER) | payer OTHER ==
[2018-11-16 08:23] VITALS: BP 129/67; PULSE 79; TEMP 97.5; BMI 24.3
--- NOTE | 2018-11-16 08:57 | PDOC ---
History of Present Illness - General Chief Complaint: Pain Stated Complaint: RT ARM PAIN Time Seen by Provider: 11/16/18 08:26 History Source: Patient Exam Limitations: No Limitations Past History - Past Medical History Allergies/Adverse Reactions: Allergies Allergy/AdvReac Type Severity Reaction Status Date / Time No Known Allergies Allergy Verified 11/16/18 08:19 Home Medications: Ambulatory Orders Lisinopril [Prinivil -] 40 mg PO DAILY 09/06/14 Escitalopram Oxalate [Lexapro -] 20 mg PO ASDIR 01/22/15 Gabapentin [Neurontin] 300 mg PO TID #30 capsule 01/22/15 Pantoprazole Sodium [Protonix] 40 mg PO ASDIR 01/22/15 Sitagliptin Phos/Metformin HCl [Janumet 50-1,000 mg Tablet] 1 tab PO BID Insulin Degludec [Tresiba Flextouch U-100] 75 unit SQ AM 06/12/18 Insulin Sliding Scale [Novolog Vial Sliding Scale -] 0 units SQ AC PRN 06/12/18 Atorvastatin Ca [Lipitor] 80 mg PO HS #30 tab 06/15/18 Clopidogrel Bisulfate [Plavix -] 75 mg PO DAILY #30 tablet 06/15/18 COPD: No CHF: No Diabetes: Yes HTN: Yes Hypercholesterolemia: Yes - Immunization History Immunization Up to Date: Yes - Suicide/Smoking/Psychosocial Hx Smoking Status: Yes Smoking History: Never smoked Have you smoked in the past 12 months: No Number of Cigarettes Smoked Daily: 3 Information on smoking cessation initiated: No 'Breaking Loose' booklet given: 04/17/12 Hx Alcohol Use: No Drug/Substance Use Hx: No Substance Use Type: None Hx Substance Use Treatment: No *Physical Exam - Vital Signs Last Vital Signs Temp Pulse Resp BP Pulse Ox 97.5 F L 79 16 129/67 99 11/16/18 08:19 11/16/18 08:19 11/16/18 08:19 11/16/18 08:19 11/16/18 08:19 - Physical Exam General Appearance: No: Apparent Distress Neck: negative: Rigidity, Tender lateral, Tender midline Respiratory/Chest: positive: Lungs Clear, Normal Breath Sounds. negative: Respiratory Distress Cardiovascular: positive: Regular Rhythm, Regular Rate, S1, S2. negative: Murmur Extremity: positive: Normal Capillary Refill, Normal Range of Motion. negative : Erythema Integumentary: positive: Normal Color. negative: Swelling, Ecchymosis, Bruising Neurologic: positive: Fully Oriented, Alert, Normal Mood/Affect, Motor Strength 5/5, Other (decreased sensation along R 1st-4th digits, +tinel and phalen sign) Medical Decision Making - Medical Decision Making 58 y/o F hx of HTN, HLD, DM, hysterectomy, CVA 06/2018 (affected R side, no residual deficits) presents with complain of initial R sided neck pain which started a month ago. Saw her PCP who told her she was having neck stiffness and referred her to physical therapy. Patient was also taking Motrin but states motrin was not helping much. States most recently now having increased pain from R hand down to R elbow with tingling, mainly in R 2nd-4th digits. Is R handed. Works as home health aide. Denies fever, sob, cp, abd pain, vomiting, headache, visual/gait changes, weakness of extremities. Neuro exam unremarkable Concern for likely carpal tunnel Given velcro wrist splint will refer to ortho 11/16/18 08:53 *DC/Admit/Observation/Transfer Diagnosis at time of Disposition: Carpal tunnel syndrome on right - Discharge Dispostion Disposition: HOME Condition at time of disposition: Stable Decision to Admit order: No - Referrals Referrals: Skyler Sierra DO [Staff Physician] - 2 Days - Patient Instructions Printed Discharge Instructions: DI for Carpal Tunnel Syndrome Additional Instructions: Thank you for choosing [facility]. It was a pleasure taking care of you. You were referred to orthopedic for possible carpal tunnel syndrome Avoid NSAIDs, like Motrin, given your history of stroke Return to the Emergency Department if your symptoms worsen or persist, have weakness of extremities or other concerning symptoms. - Post Discharge Activity
== END 2018-11-16 09:06 | disposition home or self-care (01) ==
LOC: JERFT 08:13
DX: G56.01 Carpal tunnel syndrome, right upper limb (principal); I10 Essential (primary) hypertension; E78.5 Hyperlipidemia, unspecified; E11.9 Type 2 diabetes mellitus without complications; Z86.73 Personal history of transient ischemic attack (TIA), and cerebral infarction without residual deficits; Z79.4 Long term (current) use of insulin
CPT/HCPCS: 99282-25

== ENCOUNTER 2020-09-09 15:18 | Observation (INO) | payer OTHER ==
[2020-09-09] MEDS ORDERED: SODIUM CHLORIDE 500 ML IV STA (15:46)
[2020-09-09] MEDS ORDERED: SODIUM CHLORIDE 1,000 ML IV STA (15:48)
[2020-09-09 16:50] LABS: BASO % 1.4 % (0-2.0); EOS % 2.2 % (0-4.5); HEMATOCRIT 35.2 % (32.4-45.2); HEMOGLOBIN 12.2 GM/dL (10.7-15.3); LYMPH % 12.7 % (8-40); MCH 30.8 pg (25.7-33.7); MCHC 34.7 g/dl (32.0-36.0); MEAN CELL VOLUME 88.7 fl (80-96); MEAN PLT VOLUME 7.7 fl (7.5-11.1); NEUT % 78.7 % (42.8-82.8); PLATELET COUNT 392 K/MM3 (134-434); RBC 3.97 M/mm3 (3.60-5.2); RDW 13.8 % (11.6-15.6); WHITE BLOOD COUNT 10.6 K/mm3 (4.0-10.0)
[2020-09-09 17:09] LABS: CALCIUM 9.7 mg/dL (8.5-10.1)
[2020-09-09 17:10] LABS: ALBUMIN 4.2 g/dl (3.4-5.0); BLOOD UREA NITROGEN 29.5 mg/dL (7-18); MAGNESIUM 1.3 mg/dL (1.8-2.4)
[2020-09-09 17:13] LABS: CREATININE 2.3 mg/dL (0.55-1.3)
[2020-09-09 17:15] LABS: BILIRUBIN,TOTAL 0.4 mg/dL (0.2-1); TOT PROT 7.6 g/dl (6.4-8.2)
[2020-09-09] MEDS ORDERED: MAGNESIUM SULF 50% (8.12 MEQ/2 ML-1 GM VIAL) IVPB ONE (17:22)
[2020-09-09] MEDS ORDERED: ACETAMINOPHEN 325 MG TABLET (FP) PO ONE (17:27)
[2020-09-09] MEDS ORDERED: MAGNESIUM 1GM/D5W - 1 GM/100 ML IVPB IVPB ONE (17:49)
[2020-09-09] MEDS ORDERED: ACETAMINOPHEN 325 MG TABLET (FP) ONE (17:49)
[2020-09-09] MEDS ORDERED: DEXTROSE 5%-0.45% SALINE 1,000 ML IV SCH (22:30)
[2020-09-10] MEDS: INSULIN SLIDING SCALE (NOVOLOG) 1 VIAL SQ SCH ×5 (00:23→23:23)
[2020-09-10] MEDS: GABAPENTIN 300 MG CAPSULE PO SCH ×4 (00:23→23:14)
[2020-09-10 04:25] VITALS: BMI 22.1
[2020-09-10 07:12] LABS: BASO % 2.6 % (0-2.0); HEMATOCRIT 32.3 % (32.4-45.2); HEMOGLOBIN 11.2 GM/dL (10.7-15.3); LYMPH % 28.7 % (8-40); MCH 31.1 pg (25.7-33.7); MCHC 34.6 g/dl (32.0-36.0); MEAN CELL VOLUME 89.8 fl (80-96); MEAN PLT VOLUME 7.7 fl (7.5-11.1); NEUT % 55.7 % (42.8-82.8); PLATELET COUNT 314 K/MM3 (134-434); RDW 13.7 % (11.6-15.6); WHITE BLOOD COUNT 5.2 K/mm3 (4.0-10.0)
[2020-09-10 07:30] LABS: BLOOD UREA NITROGEN 28.4 mg/dL (7-18)
[2020-09-10 07:32] LABS: ALBUMIN 3.4 g/dl (3.4-5.0); CALCIUM 8.4 mg/dL (8.5-10.1)
[2020-09-10 07:35] LABS: CREATININE 1.3 mg/dL (0.55-1.3)
[2020-09-10 07:36] LABS: BILIRUBIN,TOTAL 0.4 mg/dL (0.2-1)
[2020-09-10 07:37] LABS: TOT PROT 6.3 g/dl (6.4-8.2)
[2020-09-10] MEDS: HEPARIN NA (PORCINE) 5,000 UNITS/ML 1ML VIAL SQ SCH ×2 (10:10→23:13)
[2020-09-10] MEDS: ESCITALOPRAM OXALATE 20 MG TABLET PO SCH (10:10)
[2020-09-10] MEDS: CLOPIDOGREL BISULFATE 75 MG TABLET (FP) PO SCH (10:10)
[2020-09-10] MEDS ORDERED: SODIUM CHLORIDE 0.45% 1,000 ML IV SCH ×2 (15:15)
[2020-09-10] MEDS ORDERED: DIVALPROEX NA *ER* EXTEND REL 250 MG TABLET.SA PO SCH (21:00)
[2020-09-10] MEDS ORDERED: ATORVASTATIN CA 80 MG TABLET (FP) PO SCH (22:00)
[2020-09-11] MEDS: GABAPENTIN 300 MG CAPSULE PO SCH ×2 (06:28→14:22)
[2020-09-11] MEDS: INSULIN SLIDING SCALE (NOVOLOG) 1 VIAL SQ SCH ×3 (06:30→17:26)
[2020-09-11 08:21] LABS: BLOOD UREA NITROGEN 17.1 mg/dL (7-18)
[2020-09-11 08:23] LABS: ALBUMIN 3.7 g/dl (3.4-5.0); CALCIUM 9.2 mg/dL (8.5-10.1)
[2020-09-11 08:26] LABS: BILIRUBIN,TOTAL 0.4 mg/dL (0.2-1); CREATININE 0.9 mg/dL (0.55-1.3)
[2020-09-11 08:28] LABS: TOT PROT 6.8 g/dl (6.4-8.2)
[2020-09-11] MEDS: ESCITALOPRAM OXALATE 20 MG TABLET PO SCH (08:57)
[2020-09-11] MEDS: CLOPIDOGREL BISULFATE 75 MG TABLET (FP) PO SCH (08:57)
[2020-09-11] MEDS: HEPARIN NA (PORCINE) 5,000 UNITS/ML 1ML VIAL SQ SCH (09:00)
[2020-09-11] MEDS ORDERED: REGADENOSON 0.4 MG/5 ML PRE-FILLED SYRINGE IVPUSH ONE ×2 (09:59→10:30)
[2020-09-11 14:18] VITALS: BP 109/67; PULSE 81; TEMP 98.2
== END 2020-09-11 17:38 | disposition short-term general hospital (02) ==
LOC: JER 15:18 → JERBED 17:17 → J4W 21:04
PROVIDERS: ADMIT Internal Medicine; ATTEND Internal Medicine
PROC: 3E033GC Introduction of Other Therapeutic Substance into Peripheral Vein, Percutaneous Approach (ICD-10-PCS; principal; 2020-09-09)
PROC: 3E033GC Introduction of Other Therapeutic Substance into Peripheral Vein, Percutaneous Approach (ICD-10-PCS; 2020-09-09)
PROC: 3E023GC Introduction of Other Therapeutic Substance into Muscle, Percutaneous Approach (ICD-10-PCS; 2020-09-09)
PROC: B246ZZZ Ultrasonography of Right and Left Heart (ICD-10-PCS; 2020-09-09)
DX: R55 Syncope and collapse (principal); N17.9 Acute kidney failure, unspecified; E87.1 Hypo-osmolality and hyponatremia; E83.42 Hypomagnesemia; I95.9 Hypotension, unspecified; D72.829 Elevated white blood cell count, unspecified; R07.89 Other chest pain; R51.9 Headache, unspecified; E11.9 Type 2 diabetes mellitus without complications; Z79.4 Long term (current) use of insulin; K21.9 Gastro-esophageal reflux disease without esophagitis; E78.00 Pure hypercholesterolemia, unspecified; Z86.73 Personal history of transient ischemic attack (TIA), and cerebral infarction without residual deficits
CPT/HCPCS: 36415; 70450-TC; 71045-TC-FY; 72125-TC; 76775-TC; 78452-TC; 80053; 82550; 82962; 83036; 83735; 84443; 84484; 85025; 93005; 93010; 93017; 93306-TC; 93308; 93880-TC; 96361; 96372; 96375; 99285-25; A9502; C9803; G0378; J1644; J2785; U0003; U0005

== ENCOUNTER 2021-09-17 04:27 | Day surgery (SDC) | payer OTHER ==
[2021-09-06 12:31] VITALS: BMI 22.3
[2021-09-17] MEDS ORDERED: ACETAMINOPHEN INJECTION 100 ML IVPB ONE (07:06)
[2021-09-17] MEDS ORDERED: LIDOCAINE HCL 1%, 10 MG/ML (20ML VIAL) ONE (07:11)
[2021-09-17] MEDS ORDERED: DEXAMETHASONE SOD PHOSPHATE 4 MG/1 ML VIAL ONE (07:12)
[2021-09-17] MEDS ORDERED: BUPIVACAINE HCL/PF 0.5% (5MG/ML) 10 ML VIAL ONE (07:12)
[2021-09-17] MEDS ORDERED: GENTAMICIN SO4 80 MG/2 ML VIAL ONE (07:26)
[2021-09-17] MEDS ORDERED: LIDOCAINE HCL 1%, 10 MG/ML (20ML VIAL) NR ONE ×2 (07:31→07:53)
[2021-09-17] MEDS ORDERED: BUPIVACAINE HCL/PF 0.5% (5MG/ML) 10 ML VIAL IJ ONE ×4 (07:32→08:24)
[2021-09-17] MEDS ORDERED: KETAMINE HCL 200 MG/20 ML VIAL ONE (07:39)
[2021-09-17] MEDS ORDERED: MIDAZOLAM HCL 2 MG/2 ML SINGLE DOSE VIAL ONE (07:39)
[2021-09-17] MEDS ORDERED: PROPOFOL 20 ML ONE ×2 (07:48→08:09)
[2021-09-17] MEDS ORDERED: ceFAZolin SODIUM 1 GM VIAL IVPB ONE (07:50)
[2021-09-17] MEDS ORDERED: BENZOIN/ALOE VERA/STORAX/TOLU 58 ML BOTTLE ONE (08:36)
[2021-09-17 12:14] VITALS: BP 110/70; PULSE 70; TEMP 97
== END 2021-09-17 12:20 | disposition home or self-care (01) ==
LOC: JASU-SURG 04:27
PROVIDERS: ATTEND Podiatrist Foot Surgery
PROC: 0QSN04Z Reposition Right Metatarsal with Internal Fixation Device, Open Approach (ICD-10-PCS; principal; 2021-09-17 07:30)
DX: M21.611 Bunion of right foot (principal)
CPT/HCPCS: 73630-TC-RT-FY; 82962; 88304-TC; 88311-TC